=== PATIENT | female | born 1930 | race Caucasian/White ===

== ENCOUNTER 2016-07-16 22:17 | Emergency (ER) | payer OTHER, MEDICARE ==
[~2016-07-16] VITALS: Ht 165.1 cm; Wt 72.6 kg
[2016-07-16 22:26] VITALS: BP 170/74
--- NOTE | 2016-07-16 23:08 | ED HEAD/FACIAL INJ COMPLAINT ---
History of Present Illness General Chief Complaint: Facial or Head Injury Stated Complaint: FALL, HIT LEFT EYE, -LOC Source: patient, family, old records Exam Limitations: no limitations Vital Signs & Intake/Output Vital Signs & Intake/Output Vital Signs Date Time Temp Pulse Resp B/P B/P Pulse O2 O2 Flow FiO2 Mean Ox Delivery Rate 07/166 97.4 69 18 170/74 100 Room Air ED Intake and Output 07/17 0000 07/16 1200 Intake Total 0 Output Total Balance 0 Intake, Oral 0 Patient 160 lb Weight Weight Reported by Patient Measurement Method Allergies Coded Allergies: No Known Allergies (07/16/16) Triage Note: PT TO ED FOR AFTER SLIPPING IN HER GARAGE. PT TO TRIAGE WITH A BRUISED AND SWOLLEN LEFT EYE, NO VISION CHANGES, NO LOC, NO OTHER COMPLAINTS. PT DENIES DIZZINESS P/T FALL, REMEMBERS ENTIRE EVENT, NO THINNERS, NO ASA. Triage Nurses Notes Reviewed? yes Onset: Abrupt Severity: mild Severity Numbers: 1 Location: frontal Method of Injury: direct blow Loss of Consciousness: no loss of consciousness Associated Symptoms: denies HPI: 85-year-old female history of hypothyroid hypertension presents emergency room with her family status post mechanical trip and fall sustaining injury to her left orbit. Patient was taking her cycling on the crot[place] when she slipped and fell striking the left side of her face. No loss of consciousness. She states since then she's had mild aching pain over her left orbit and swelling. She did not take anything for her symptoms and is declining anything offered. She denies any neck pain nausea vomiting vision changes. No change in her mental status per family. She denies any prodromal dizziness lightheadedness prior to her fall no other complaints. She denies headache vision changesvision blurry vision (ANJALI CERDA) Past History Travel History Traveled to [place] past 21 day No Medical History Any Pertinent Medical History? see below for history Neurological: NONE EENT: NONE Cardiovascular: hypertension, HIGH CHOLESTEROL Respiratory: NONE Gastrointestinal: NONE Hepatic: NONE Renal: NONE Musculoskeletal: NONE Psychiatric: NONE Endocrine: HYPOTHYROID Blood Disorders: NONE Cancer(s): CERVICAL CANCER Surgical History Surgical History: non-contributory Psychosocial History What is your primary language Iraqi Tobacco Use: Never used ETOH Use: occasional use Illicit Drug Use: denies illicit drug use Family History Hx Contributory? No (ANJALI CERDA) Review of Systems Review of Systems Constitutional: Reports: see HPI. All Other Systems: Reviewed and Negative Comments Review of systems: See HPI, All other systems negative. Constitutional, no chills no fever, no malaise HEENT: No visual changes no sore throat no congestion, no ear pain Cardiovascular: No chest pain , no palpitation Skin: no rashes, no change in skin Respiratory: No dyspnea no cough no sputum GI: No nausea no vomiting, no diarrhea, : No dysuria Muscle skeletal: No joint pain, no back pain no neck pain, Neurologic: No numbness no confusion, no headache Psych: No stress no depression,. Heme/endocrine: No bruising no bleeding Immunology: No lymphadenopathy (ANJALI CERDA) Physical Exam Physical Exam General Appearance: well developed/nourished, alert, awake Cranial Nerves: normal hearing, normal speech, PERRL Comments: Well-developed well-nourished person in no acute distress Head/Face: Mild swelling ecchymosis over the left orbit, the rest of scalp and face are atraumatic no lacerations or abrasions skin is intact, no maxillary/ frontal sinus tenderness, no facial swelling Eyes: PERRL, EOMI, no conjunctival injection. No nystagmus no subconjunctival hemorrhage no hyphema Ear:External auditory canal and Tympanic membranes clear, no erythema, no FB. Nose: atraumatic.Normal inspection: No bleeding, no septal hematoma Throat: Moist mucous membranes.Pharynx normal. No dental trauma No stridor/ drooling or assymetry. No swelling or edema. Neck: Supple, no lymphadenopathy, FROM Back: Nontender, no CVA tenderness. Full range of motion Cardiovascular: Regular rate and rhythms no murmurs rubs Respiratory: No respiratory distress. Patient speaking in full complete sentences. Breath sounds clear to auscultation bilaterally: NO W/R/R Abdomen: Soft, nontender nondistended, no appreciable organomegaly. Normal bowel sounds. No rebound/guarding, Extremity: No edema, full range of motion of extremities, normal and equal pulses bilaterally, 5 out of 5 strength noted to bilateral upper and lower extremities Neuro: Alert oriented x3, motor sensory normal, cranial nerves II through XII grossly intact. There were no obvious focal neurologic abnormalities. Skin: No appreciable rash on exposed skin, skin is warm and dry. Psych: Mood and affect is normal, memory and judgment is normal. (ANJALI CERDA) Progress Differential Diagnosis: facial fracture, globe injury, ICH, orbit fracture, skull fracture Plan of Care: Orders Procedure Date/time Status CT ORBITS WO IV CONTRAST 07/[address] HEAD WO IV CONTRAST 07/16 2313 Active CAT scans ordered patient is declining anything when offered for pain I discussed with the patient at length all of their results. I had an extensive conversation regarding need for close follow up with their primary care physician this week as well as return precautions. I answered all of their questions, they feel comfortable with the plan and follow-up care. (ANJALI CERDA) Diagnostic Imaging: Viewed by Me: CT Scan. Discussed w/RAD: CT Scan. Radiology Impression: ATIENT: CLAUDINE LYNCH PRESENT AGE: 85 PATIENT ACCOUNT NO: [id number] : 30 LOCATION: [facility] ORDERING PHYSICIAN: ANJALI REED SERVICE DATE: 07/16/16 EXAM TYPE: CAT - CT HEAD WO IV CONTRAST; CT ORBITS WO IV CONTRAST EXAMINATION: CT HEAD AND ORBITS. CLINICAL INFORMATION: Fall. Head trauma. Hematoma and pain. COMPARISON: No relevant prior imaging is available. TECHNIQUE: Straddle Bug Driver images were obtained. CT acquisition of the head and orbits was performed without intravenous administration of contrast. Data was reformatted into multiplanar images at the acquisition workstation. DLP: 819.76 mGy-cm. FINDINGS: Head: There is no acute intracranial hemorrhage or abnormal extra axial collection. No intracranial mass effect or midline shift. Lateral and third ventricles are normal. No hydrocephalus. Kowalski-white matter differentiation is grossly preserved and there is no evidence of acute territorial infarct. The calvarium is intact and there is no acute skull base fracture. Mastoid air cells and middle ear cavities are well aerated. Orbits: There is focal swelling of the left periorbital soft tissues and left frontal scalp. The left globe is intact. There is no retrobulbar hematoma or inflammatory changes. There is no acute orbital fracture. Specifically the lamina papyracea and orbital floors are intact. Orbital apices are unremarkable. The nasal bones, zygomatic arches, and pterygoid processes are intact. Visualized portions of the mandible including the temporomandibular joints are unremarkable. There is lobulated mucosal thickening within the alveolar recesses of both maxillary sinuses. The primary maxillary sinus ostia are patent. There is a patent accessory maxillary sinus ostium on the left side that opens into the middle meatus. Uncinate processes are intact. The frontal sinuses are well aerated and the frontal recesses are patent. There is mucosal disease within the posterior ethmoids and sphenoid sinus. Both of the sphenoid sinus ostia are patent. The nasal septum deviates to the right and there is a prominent rightward projecting nasal septal spur. IMPRESSION: There is left periorbital soft tissue swelling. No acute maxillofacial fracture. No acute intracranial hemorrhage. DICTATED BY: SETH JASON MD DATE/TIME DICTATED:07/17/167 HOT DIP GALVANIZER:LIZETTE DATE /TIME TRANSCRIBED:07/17/167 CONFIDENTIAL, DO NOT COPY WITHOUT APPROPRIATE AUTHORIZATION. <Electronically signed in Other Vendor System> SIGNED BY: SETH JASON MD 07/17/1616 (ANJALI CERDA) Departure Departure Time of Disposition: 26 Disposition: HOME OR SELF CARE Condition: Stable Clinical Impression Primary Impression: Minor head injury without loss of consciousness Referrals: ELVER PHIPPS,THELMA St (PCP/Family) Additional Instructions: Rest ice Tylenol Motrin as needed follow-up with her primary care physician tomorrow, return anytime sooner with any concerns. Departure Forms: Customer Survey General Discharge Information (ANJALI CERDA) PA/RADIOLOGIC TECHNOLOGIST MAMMOGRAM Co-Sign Statement Statement: ED Attending supervision documentation- x I saw and evaluated the patient. I have also reviewed all the pertinent lab results and diagnostic results. I agree with the findings and the plan of care as documented in the PA's/RADIOLOGIC TECHNOLOGIST MAMMOGRAM's documentation. [] I have reviewed the ED Record and agree with the PA's/RADIOLOGIC TECHNOLOGIST MAMMOGRAM's documentation. [] Additions or exceptions (if any) to the PAs/RADIOLOGIC TECHNOLOGIST MAMMOGRAM's note and plan are summarized below: [] (EBER PHIPPS,TOO)
--- NOTE | 2016-07-17 00:17 | CT SCAN REPORT ---
EXAMINATION: CT HEAD AND ORBITS. CLINICAL INFORMATION: Fall. Head trauma. Hematoma and pain. COMPARISON: No relevant prior imaging is available. TECHNIQUE: Process Eng images were obtained. CT acquisition of the head and orbits was performed without intravenous administration of contrast. Data was reformatted into multiplanar images at the acquisition workstation. DLP: 819.76 mGy-cm. FINDINGS: Head: There is no acute intracranial hemorrhage or abnormal extra axial collection. No intracranial mass effect or midline shift. Lateral and third ventricles are normal. No hydrocephalus. Kowalski-white matter differentiation is grossly preserved and there is no evidence of acute territorial infarct. The calvarium is intact and there is no acute skull base fracture. Mastoid air cells and middle ear cavities are well aerated. Orbits: There is focal swelling of the left periorbital soft tissues and left frontal scalp. The left globe is intact. There is no retrobulbar hematoma or inflammatory changes. There is no acute orbital fracture. Specifically the lamina papyracea and orbital floors are intact. Orbital apices are unremarkable. The nasal bones, zygomatic arches, and pterygoid processes are intact. Visualized portions of the mandible including the temporomandibular joints are unremarkable. There is lobulated mucosal thickening within the alveolar recesses of both maxillary sinuses. The primary maxillary sinus ostia are patent. There is a patent accessory maxillary sinus ostium on the left side that opens into the middle meatus. Uncinate processes are intact. The frontal sinuses are well aerated and the frontal recesses are patent. There is mucosal disease within the posterior ethmoids and sphenoid sinus. Both of the sphenoid sinus ostia are patent. The nasal septum deviates to the right and there is a prominent rightward projecting nasal septal spur. IMPRESSION: There is left periorbital soft tissue swelling. No acute maxillofacial fracture. No acute intracranial hemorrhage.
== END 2016-07-17 00:27 ==
LOC: ERH 22:17
DX: S09.90XA Unspecified injury of head, initial encounter (principal); W01.0XXA Fall on same level from slipping, tripping and stumbling without subsequent striking against object, initial encounter; Y93.89 Activity, other specified; Y92.9 Unspecified place or not applicable